=== PATIENT | male | born 1945 | race Caucasian/White ===

== ENCOUNTER → 2023-04-06 11:47 | Outpatient (REF) | payer OTHER, SELFPAY ==
[2023-04-06 12:41] LABS: % Basophils 1.2 % (0-2); % Eosinophils 5.1 % (0-6); % Immature Granulocytes 0.4 % (0-0.5); % Lymphocytes 30.9 % (20.5-51.1); % Monocytes 8.6 % (1.7-9.3); % Neutrophils 53.8 % (42.2-75.2); Absolute Basophils 0.1 10^3/uL (0-0.2); Absolute Eosinophils 0.3 10^3/uL (0-0.7); Absolute Lymphocytes 1.5 10^3/uL (1.2-3.4); Absolute Monocytes 0.4 10^3/uL (0.1-0.6); Absolute Neutrophils 2.6 10^3/uL (1.4-6.5); Hematocrit 44.4 % (39.0-52.0); Hemoglobin 15.3 g/dL (13.0-18.0); Mean Corp Hgb Conc. 34.5 g/dL (33.0-37.0); Mean Corpuscular Hgb 31.8 pg (27.0-31.0); Mean Corpuscular Volume 92.3 fL (80.0-94.0); Mean Platelet Volume 9.4 fL (7.4-10.4); Nucleated Red Blood Cells % 0 % (-); Platelet Count 178 10^3/uL (130-400); Red Blood Cell Count 4.81 10^6/uL (4.70-6.10); Red Cell Dist. Width 12.9 % (11.5-14.5); White Blood Cell Count 4.9 10^3/uL (4.8-10.8)
[2023-04-06 13:07] LABS: FSH 40.4 mIU/ml (1.55-9.74); Free T4 1.39 ng/dl (0.78-2.19)
[2023-04-06 13:11] LABS: Free T3 3.17 pg/ml (2.77-5.27)
[2023-04-06 13:21] LABS: TSH 2.25 uIU/ml (0.47-4.68)
[2023-04-06 13:26] LABS: PSA, Total - Screen 0.86 ng/ml (0.0-4.0)
[2023-04-09 01:02] LABS: Total T3 (Sendout) 71 ng/dL (80-200)
[2023-04-09 01:03] LABS: % Free Testosterone 1.4 % (1.6-2.9); Free Testosterone 56 pg/mL (47-244); Sex Hormone Binding Globulin 53 nmol/L (19-76); Total Testosterone 407 ng/dL (300-720)
== END ==
LOC: REG 11:47
PROVIDERS: ATTENDING PHYSICIAN Physician Assistant; FAMILY PHYSICIAN Internal Medicine Geriatric Medicine
DX: E29.1 Testicular hypofunction (principal); E03.9 Hypothyroidism, unspecified
CPT/HCPCS: 36415; 83001; 83002; 84270; 84402; 84403; 84439; 84443; 84480; 84481; 85025; G0103

== ENCOUNTER → 2023-05-11 11:34 | Outpatient (REF) | payer OTHER, SELFPAY | LOC: REG 11:34 | PROVIDERS: ATTENDING PHYSICIAN Nurse Practitioner Family; REFERRING PHYSICIAN Internal Medicine Critical Care Medicine | DX: R06.02 Shortness of breath (principal) | CPT/HCPCS: 71046 ==

== ENCOUNTER → 2023-10-04 11:53 | Outpatient (REF) | payer OTHER, SELFPAY ==
[2023-10-04 14:29] LABS: % Basophils 1.3 % (0-2); % Immature Granulocytes 0.4 % (0-0.5); % Monocytes 8.8 % (1.7-9.3); % Neutrophils 47.5 % (42.2-75.2); Absolute Basophils 0.1 10^3/uL (0-0.2); Absolute Eosinophils 1.5 10^3/uL (0-0.7); Absolute Lymphocytes 1.5 10^3/uL (1.2-3.4); Absolute Monocytes 0.6 10^3/uL (0.1-0.6); Absolute Neutrophils 3.3 10^3/uL (1.4-6.5); Hematocrit 43.4 % (39.0-52.0); Mean Corp Hgb Conc. 34.6 g/dL (33.0-37.0); Mean Corpuscular Volume 95.4 fL (80.0-94.0); Mean Platelet Volume 9.7 fL (7.4-10.4); Nucleated Red Blood Cells % 0 % (-); Platelet Count 190 10^3/uL (130-400); Red Blood Cell Count 4.55 10^6/uL (4.70-6.10); Red Cell Dist. Width 13.2 % (11.5-14.5)
[2023-10-04 14:59] LABS: ALT (SGPT) 45 U/L (0-50); AST (SGOT) 41 U/L (17-59); Albumin 4.4 g/dl (3.5-5.0); Alkaline Phosphatase 87 U/L (38-126); Blood Urea Nitrogen 30 mg/dl (9-20); Calcium 9.3 mg/dl (8.4-10.2); Carbon Dioxide 27 mmol/L (22-30); Chloride 101 mmol/L (98-107); Glucose 99 mg/dl (70-99); HDL Cholesterol 54 mg/dl; LDL Cholesterol, Calculated 113 mg/dl; Potassium 4.8 mmol/L (3.5-5.1); Sodium 136 mmol/L (135-145); Total Bilirubin 0.8 mg/dl (0.2-1.3); Total Cholesterol 181 mg/dl (50-199); Total Protein 6.6 g/dl (6.3-8.2); Triglyceride 74 mg/dl (10-149); Very Low Density Lipoprotein 14 mg/dl (0-30); eGFR > 60.00
[2023-10-04 15:08] LABS: IgA 135 mg/dl (70-400)
[2023-10-04 15:11] LABS: FSH 35.6 mIU/ml (1.55-9.74)
[2023-10-04 15:25] LABS: PSA, Total - Screen 0.96 ng/ml (0.0-4.0); TSH 3.02 uIU/ml (0.47-4.68)
[2023-10-06 15:21] LABS: tTG IgA Antibody 2.4 EU/ml (0-19)
[2023-10-06 17:41] LABS: % Free Testosterone 1.4 % (1.6-2.9); Free Testosterone 48 pg/mL (47-244); Sex Hormone Binding Globulin 49 nmol/L (19-76); Total Testosterone 333 ng/dL (300-720)
== END ==
LOC: REG 11:53
PROVIDERS: ATTENDING PHYSICIAN Physician Assistant; FAMILY PHYSICIAN Internal Medicine Geriatric Medicine
DX: E29.1 Testicular hypofunction (principal); E03.9 Hypothyroidism, unspecified; E78.2 Mixed hyperlipidemia; J01.41 Acute recurrent pansinusitis; J45.30 Mild persistent asthma, uncomplicated; G47.33 Obstructive sleep apnea (adult) (pediatric); J01.00 Acute maxillary sinusitis, unspecified; G47.34 Idiopathic sleep related nonobstructive alveolar hypoventilation; J45.909 Unspecified asthma, uncomplicated; J32.9 Chronic sinusitis, unspecified; Z13.89 Encounter for screening for other disorder; R09.81 Nasal congestion; R53.83 Other fatigue; J02.9 Acute pharyngitis, unspecified; G43.809 Other migraine, not intractable, without status migrainosus
CPT/HCPCS: 36415; 80053; 80061; 82784; 83001; 83002; 83516; 84270; 84402; 84403; 84439; 84443; 85025; 86231; G0103

== ENCOUNTER 2024-03-11 14:53 | Emergency (ER) | payer OTHER, SELFPAY ==
[2024-03-11 14:55] VITALS: BP 160/88
[2024-03-11 15:26] LABS: % Basophils 0.8 % (0-2); % Eosinophils 1.8 % (0-6); % Immature Granulocytes 0.4 % (0-0.5); % Lymphocytes 18.5 % (20.5-51.1); % Monocytes 8.9 % (1.7-9.3); % Neutrophils 69.6 % (42.2-75.2); Absolute Basophils 0.1 10^3/uL (0-0.2); Absolute Eosinophils 0.1 10^3/uL (0-0.7); Absolute Lymphocytes 1.3 10^3/uL (1.2-3.4); Absolute Monocytes 0.6 10^3/uL (0.1-0.6); Hematocrit 40.8 % (39.0-52.0); Hemoglobin 14.3 g/dL (13.0-18.0); Mean Corpuscular Hgb 32.4 pg (27.0-31.0); Mean Corpuscular Volume 92.5 fL (80.0-94.0); Mean Platelet Volume 9.4 fL (7.4-10.4); Nucleated Red Blood Cells % 0 % (-); Platelet Count 158 10^3/uL (130-400); Red Blood Cell Count 4.41 10^6/uL (4.70-6.10); Red Cell Dist. Width 12.8 % (11.5-14.5); White Blood Cell Count 7.2 10^3/uL (4.8-10.8)
[2024-03-11 15:41] LABS: ALT (SGPT) 46 U/L (0-50); AST (SGOT) 44 U/L (17-59); Albumin 4.4 g/dl (3.5-5.0); Alkaline Phosphatase 71 U/L (38-126); Blood Urea Nitrogen 29 mg/dl (9-20); Calcium 9.7 mg/dl (8.4-10.2); Carbon Dioxide 30 mmol/L (22-30); Chloride 96 mmol/L (98-107); Glucose 89 mg/dl (70-99); Potassium 5.5 mmol/L (3.5-5.1); Sodium 133 mmol/L (135-145); Total Protein 6.7 g/dl (6.3-8.2); eGFR > 60.00
[2024-03-11 15:52] LABS: Troponin I < 0.012 ng/ml
--- NOTE | 2024-03-11 18:28 | ED.GENMED ---
History of Present Illness
<Pascual Baca PA-C - Last Filed: 03/12/24 01:38>
General
Chief Complaint: Dizziness
Source: patient
Exam Limitations: none
Time Seen by Provider: 03/11/24 18:11
History of Present Illness
History of Present Illness:
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 He describes a spinning sensation. He was under stress. He went to a friend's this morning.
He noticed that his hot water heater broke and he was clearing out his basement and during this episode he had developed a headache with dizziness and hot sweats. There has been no cough or shortness of breath. He denies chest pain. He did note
some left jaw pain during this episode. Since waiting in the waiting room all of his symptoms have resolved. No unilateral numbness or weakness. No fevers. No vomiting. No other complaints at this time
Phy Exam
<Pascual Baca PA-C - Last Filed: 03/12/24 01:38>
Physical Exam
Physical Exam:
General: Well-appearing male no acute respiratory distress
HEENT: Normocephalic atraumatic
Heart: Bradycardic but regular
Lungs: Clear no wheeze
Extremities: No cyanosis
Neurologic exam: Alert and oriented no facial asymmetry no aphasia or dysarthria. No drift on exam no nystagmus
Skin is warm no rash
Course
<Pascual Baca PA-C - Last Filed: 03/12/24 01:38>
Orders/Labs/Results
Orders:
Orders
03/11/24 14:54
Electrocardiogram (*1) Urgent
Reason for Study: Vertigo / Dizzy
EKG- Treatment ONCE
03/11/24 15:20
CMP [Comprehensive Metabolic Panel] Urgent
Complete Blood Count/With Diff Urgent
TSH Reflex To Free T4 Urgent
Comment: ADD ON
Troponin I Urgent
03/11/24 18:27
Cardiac Monitoring- Treatment ONCE
pacemaker [Interrogate Pacemaker- Treatment] ONCE
03/11/24 18:28
Add On- LAB Urgent
Tests Added?: tsh reflex to free t4
03/11/24 19:23
COVID-19 Antigen Urgent
Source: Nasal Swab
Troponin I Urgent
Influenza A+B Rapid Molecular Urgent
SAGAR Source: Nasal Swab
Specimen Description:
03/11/24 20:38
CT Head W/o Iv Contrast Urgent
Comment:
Reason For Exam: dizziness
03/11/24 21:20
CT Limited Or Follow-up Study Urgent
Reason For Exam: dizziness, double vision
Abnormal Lab Results
03/11/24
15:20
RBC 4.41 L 10^6/uL
(4.70-6.10)
MCH 32.4 H pg
(27.0-31.0)
Lymphocytes % 18.5 L %
(20.5-51.1)
Sodium 133 L mmol/L
(135-145)
Potassium 5.5 H mmol/L
(3.5-5.1)
Chloride 96 L mmol/L
(98-107)
BUN 29 H mg/dl
(9-20)
03/11/24 15:20
03/11/24 15:20
Vital Signs
Initial and Last Documented VS:
Initial Vital Signs
Pulse Resp BP Pulse Ox
53 18 160/88 100
03/11/24 14:55 03/11/24 14:55 03/11/24 14:55 03/11/24 14:55
Last Documented Vital Signs
Temp Pulse Resp BP Pulse Ox
97.7 F 52 18 132/62 98
03/11/24 19:12 03/11/24 23:49 03/11/24 23:49 03/11/24 23:49 03/11/24 23:49
<Naye Durbin MD - Last Filed: 03/11/24 23:02>
Orders/Labs/Results
Orders:
Orders
03/11/24 14:54
Electrocardiogram (*1) Urgent
Reason for Study: Vertigo / Dizzy
EKG- Treatment ONCE
03/11/24 15:20
CMP [Comprehensive Metabolic Panel] Urgent
Complete Blood Count/With Diff Urgent
TSH Reflex To Free T4 Urgent
Comment: ADD ON
Troponin I Urgent
03/11/24 18:27
Cardiac Monitoring- Treatment ONCE
pacemaker [Interrogate Pacemaker- Treatment] ONCE
03/11/24 18:28
Add On- LAB Urgent
Tests Added?: tsh reflex to free t4
03/11/24 19:23
COVID-19 Antigen Urgent
Source: Nasal Swab
Troponin I Urgent
Influenza A+B Rapid Molecular Urgent
SAGAR Source: Nasal Swab
Specimen Description:
03/11/24 20:38
CT Head W/o Iv Contrast Urgent
Comment:
Reason For Exam: dizziness
03/11/24 21:20
CT Limited Or Follow-up Study Urgent
Reason For Exam: dizziness, double vision
Abnormal Lab Results
03/11/24
15:20
RBC 4.41 L 10^6/uL
(4.70-6.10)
MCH 32.4 H pg
(27.0-31.0)
Lymphocytes % 18.5 L %
(20.5-51.1)
Sodium 133 L mmol/L
(135-145)
Potassium 5.5 H mmol/L
(3.5-5.1)
Chloride 96 L mmol/L
(98-107)
BUN 29 H mg/dl
(9-20)
03/11/24 15:20
03/11/24 15:20
Vital Signs
Initial and Last Documented VS:
Initial Vital Signs
Pulse Resp BP Pulse Ox
53 18 160/88 100
03/11/24 14:55 03/11/24 14:55 03/11/24 14:55 03/11/24 14:55
Last Documented Vital Signs
Temp Pulse Resp BP Pulse Ox
97.7 F 52 18 132/62 98
03/11/24 19:12 03/11/24 23:49 03/11/24 23:49 03/11/24 23:49 03/11/24 23:49
<Pascual Baca PA-C - Last Filed: 03/12/24 01:38>
MDM/Problems Addressed
Differential Diagnosis Includes:
Patient with vague symptoms of not feeling well, headache dizziness fatigue. Does have cardiac history. Has a pacemaker. Will interrogate pacemaker. Initial troponin undetectable. Atrial paced rhythm with bradycardia this is his baseline.
Consider viral illness versus cardiac disease versus electrolyte abnormality versus vertigo
Labs reviewed. Will add CT of head P troponin COVID and flu test.
<Pascual Baca PA-C - Last Filed: 03/12/24 01:38>
*Critical Care Note
Total Time (30-74mins, 75-104mins- exclusive of procedures): Not Applicable
<Pascual Baca PA-C - Last Filed: 03/12/24 01:38>
Update Note
Update Note:
Patient reevaluated multiple times still asymptomatic. CT of the head was negative. Did order CTA of the head and neck secondary to his dizziness and his disconnected sensation in complaint of double vision a week ago. Unfortunately while
attempting at the CTA his IV line infiltrated due to the contrast. Patient unable to get the CTA tonight. Nonetheless he remains asymptomatic COVID and flu test were negative. Advise follow-up his doctors.
ED Attending Note
<Pascual Baca PA-C - Last Filed: 03/12/24 01:38>
-
Portions of this chart may have been created with voice recognition software.� Occasional wrong word or��sound alike� substitutions may have occurred due to the inherent limitations of voice recognition software.
<Naye Durbin MD - Last Filed: 03/11/24 23:02>
ED Attending Note
Patient seen and examined by attending physician: Yes
I performed the substantive portion of visit, reviewed & personally made and approve the management plan that is documented in note by myself or MARU.: Yes
ED Attending Note:
I was asked to evaluate patient after extravasation of IV contrast to his right upper extremity. Patient looks well and comfortable. He has a normal neurological exam. His right forearm is slightly swollen but soft and not particularly tender.
Patient has strong pulses in his right wrist. Patient be watched for 4 hours with ice pack and if the swelling does not get worse and he remains comfortable, we will send him home.
Discharge Plan
Departure
Patient Disposition: Home (Routine Discharge)
Date of Disposition: 03/12/24
Time of Disposition: 01:37
Patient with high blood pressure during this ER visit?: No
Discharge Problem:
Dizziness
Instructions: Dizziness
Prescriptions:
No Action
multivitamin [Daily Multiple] 1 EACH tablet
1 ea PO DAILY
fluticasone propionate [Flovent Diskus] 50 MCG blister with device
2 sprays IH BID
levothyroxine 100 MCG tablet
100 mcg PO DAILY
montelukast 10 MG tablet
10 mg PO HS
levalbuterol tartrate 1 PUFF HFA aerosol inhaler
2 puff inhalation PRN PRN (Reason: exercise)
fluticasone propion-salmeterol [Advair HFA] 1 PUFF HFA aerosol inhaler
2 puff inhalation R BID
Patient Comments:
115/21
cholecalciferol (vitamin D3) 2,000 UNIT tablet
2,000 unit PO DAILY
zinc [Zinc Chelate] 100 MG tablet
100 mg PO BID
milk thistle 175 MG tablet
175 mg PO TID
cyanocobalamin (vitamin B-12) 1,000 MCG tablet
3,000 mcg PO DAILY
fexofenadine [Magnolia] 180 MG tablet
180 mg PO HS
selenium 100 MCG tablet
100 mcg PO DAILY
coenzyme Q10 [Ultra CoQ10] 75 MG capsule
100 mg PO HS
fish oil-dha-epa 1 EACH capsule
2,500 mg PO BID
azelastine-fluticasone [Dymista] 23 GM spray,non-aerosol
2 spray NS HS
vitamin E succinate 100 UNIT tablet
180 mg PO DAILY
lutein-zeaxanthin [Ocuvite Lutein 25] 1 EACH capsule
1 ea PO DAILY
Cinnamon
2,000 mcg PO BID
Dynamic Biotics Pro/Pre Biotic
1 tab PO DAILY
Garlique
1 cap PO DAILY
Spirulina
100 mcg PO TID
Referrals:
David Jimenez MD [Active] -
Mike Trinidad MD [Family Provider] -
Activity Restrictions/Additional Instructions:
Please return here for any worsening symptoms. Follow-up with your doctor and household worker otherwise
Interventions
Interventions:
*Risk Screen - Suicide Last Done: 03/11/24 14:55
*General Assessment Last Done: 03/11/24 14:55
*ED COVID-19 Vaccine History Last Done: 03/11/24 14:55
ED- Neurological Assessment Last Done: 03/11/24 19:20
ED- Cardiac Assessment Last Done: 03/11/24 19:20
ED Swallowing Screen Last Done: 03/11/24 22:50
Discharge Date and Time
Print Language: CZECH
[2024-03-11 19:08] VITALS: BMI 25.5
[2024-03-11 19:11] VITALS: BP 155/77
[2024-03-11 19:12] VITALS: BP 155/77
[2024-03-11 19:45] LABS: COVID-19 Antigen Negative (Negative)
[2024-03-11 19:54] LABS: TSH Reflex To Free T4 2.27 uIU/ml (0.47-4.68)
--- NOTE | 2024-03-11 19:56 | EDRN ---
this pt has a [employer] Pacemaker. Per ER LUCA Baca verbal order, this INVESTOR RELATIONS ASSOCIATE attempted to interrogate this pts pacemaker. the [facility] Med[employer] Pacemaker Interrogation device was unable to connect to the wireless reader. This INVESTOR RELATIONS ASSOCIATE and
another INVESTOR RELATIONS ASSOCIATE were unsuccessful getting the pacemaker reader to connect to the daniel wirelessly. This INVESTOR RELATIONS ASSOCIATE called [employer] technical support for assistance and was told the local [employer] rep would call back to assist.
[2024-03-11 19:57] LABS: Troponin I 0.012 ng/ml
[2024-03-11 20:07] VITALS: BP 146/79
[2024-03-11 21:00] VITALS: BP 129/71
--- NOTE | 2024-03-11 22:45 | VATNOTE ---
Called by ER staffing specialist, IV in RAC infiltrated in CT, received 100-150cc of dye diluted with NSS. IV d'cd by ER staff. Pt. relates, +pain at site, minimal erythema, golf ball size swelling. Call to Pharmacy, instructed to elevate and endorsed. No
actual antidote listed. pill coater aware, will follow.
[2024-03-11 23:49] VITALS: BP 132/62
[2024-03-12 01:40] VITALS: BP 140/75
== END 2024-03-12 02:09 | disposition home or self-care (01) ==
LOC: EMR 14:53
PROVIDERS: Emergency Medicine; Physician Assistant; EMERGENCY PHYSICIAN Emergency Medicine; FAMILY PHYSICIAN Internal Medicine Geriatric Medicine
DX: R42 Dizziness and giddiness (principal); R51.9 Headache, unspecified; R68.84 Jaw pain; T80.89XA Other complications following infusion, transfusion and therapeutic injection, initial encounter; Y84.8 Other medical procedures as the cause of abnormal reaction of the patient, or of later complication, without mention of misadventure at the time of the procedure; Z11.52 Encounter for screening for COVID-19; Z73.3 Stress, not elsewhere classified; Z95.0 Presence of cardiac pacemaker; Z79.899 Other long term (current) drug therapy; Z88.1 Allergy status to other antibiotic agents; Z91.048 Other nonmedicinal substance allergy status
CPT/HCPCS: 99285; 93288; 70450; 76380; 80053; 84443; 84484; 85025; 87502; 87811; 93005

== ENCOUNTER → 2024-03-29 06:49 | Outpatient (REF) | payer OTHER, SELFPAY ==
[2024-03-29] MEDS: LEXISCAN 0.4 MG IV (09:02)
== END ==
LOC: RCS 06:49
PROVIDERS: ATTENDING PHYSICIAN Internal Medicine Geriatric Medicine
DX: Z95.0 Presence of cardiac pacemaker (principal); I49.5 Sick sinus syndrome
CPT/HCPCS: 78452; 93017; A9500; J2785

== ENCOUNTER → 2024-04-07 10:31 | Outpatient (REF) | payer OTHER, SELFPAY ==
[2024-04-07 11:12] LABS: % Basophils 1.2 % (0-2); % Eosinophils 2.6 % (0-6); % Immature Granulocytes 0.5 % (0-0.5); % Lymphocytes 33.7 % (20.5-51.1); Absolute Basophils 0.1 10^3/uL (0-0.2); Absolute Eosinophils 0.1 10^3/uL (0-0.7); Absolute Lymphocytes 1.4 10^3/uL (1.2-3.4); Absolute Monocytes 0.5 10^3/uL (0.1-0.6); Absolute Neutrophils 2.2 10^3/uL (1.4-6.5); Hematocrit 43.1 % (39.0-52.0); Hemoglobin 14.6 g/dL (13.0-18.0); Mean Corp Hgb Conc. 33.9 g/dL (33.0-37.0); Mean Corpuscular Hgb 31.7 pg (27.0-31.0); Mean Corpuscular Volume 93.7 fL (80.0-94.0); Mean Platelet Volume 9.7 fL (7.4-10.4); Nucleated Red Blood Cells % 0 % (-); Platelet Count 168 10^3/uL (130-400); White Blood Cell Count 4.3 10^3/uL (4.8-10.8)
[2024-04-07 11:53] LABS: FSH 42.2 mIU/ml (1.55-9.74); Free T4 1.27 ng/dl (0.78-2.19)
[2024-04-07 12:07] LABS: PSA, Total - Screen 0.77 ng/ml (0.0-4.0); TSH 3.33 uIU/ml (0.47-4.68)
[2024-04-09 22:41] LABS: % Free Testosterone 1.3 % (1.6-2.9); Free Testosterone 61 pg/mL (47-244); Sex Hormone Binding Globulin 56 nmol/L (19-76); Total Testosterone 451 ng/dL (300-720)
== END ==
LOC: REG 10:31
PROVIDERS: ATTENDING PHYSICIAN Physician Assistant
DX: E03.9 Hypothyroidism, unspecified (principal); E29.1 Testicular hypofunction
CPT/HCPCS: 36415; 83001; 83002; 84270; 84402; 84403; 84439; 84443; 85025; G0103

== ENCOUNTER 2024-07-18 06:18 | Day surgery (SDC) | payer MEDICARE, OTHER, SELFPAY | END 2024-07-18 14:50 | disposition home or self-care (01) | LOC: GI 06:18 | PROVIDERS: ATTENDING PHYSICIAN Internal Medicine Gastroenterology | DX: Z12.11 Encounter for screening for malignant neoplasm of colon (principal); K64.8 Other hemorrhoids; K57.30 Diverticulosis of large intestine without perforation or abscess without bleeding; K63.5 Polyp of colon; Z80.0 Family history of malignant neoplasm of digestive organs | CPT/HCPCS: 45380; 88305 ==

== ENCOUNTER → 2024-09-20 14:18 | Outpatient (REF) | payer MEDICARE, OTHER, SELFPAY | LOC: DHSLP 14:18 | PROVIDERS: ATTENDING PHYSICIAN Internal Medicine Critical Care Medicine; FAMILY PHYSICIAN Internal Medicine Geriatric Medicine | DX: G47.33 Obstructive sleep apnea (adult) (pediatric) (principal); G47.00 Insomnia, unspecified; G47.61 Periodic limb movement disorder | CPT/HCPCS: 95811 ==

== ENCOUNTER → 2024-09-21 07:21 | Outpatient (REF) | payer MEDICARE, OTHER, SELFPAY ==
[2024-09-21 08:13] LABS: Hematocrit 45.3 % (39.0-52.0); Hemoglobin 15.4 g/dL (13.0-18.0); Mean Corp Hgb Conc. 34.0 g/dL (33.0-37.0); Mean Corpuscular Volume 92.8 fL (80.0-94.0); Nucleated Red Blood Cells % 0 % (-); Platelet Count 156 10^3/uL (130-400); Red Cell Dist. Width 13.0 % (11.5-14.5)
[2024-09-21 09:05] LABS: FSH 37.0 mIU/ml (1.55-9.74)
[2024-09-21 09:20] LABS: PSA, Total - Screen 1.03 ng/ml (0.0-4.0)
== END ==
LOC: REG 07:21
PROVIDERS: ATTENDING PHYSICIAN Physician Assistant; FAMILY PHYSICIAN Internal Medicine Geriatric Medicine
DX: E29.1 Testicular hypofunction (principal); Z12.5 Encounter for screening for malignant neoplasm of prostate
CPT/HCPCS: 36415; 83001; 83002; 84270; 84402; 84403; 85025; G0103

== ENCOUNTER → 2024-10-19 10:29 | Outpatient (REF) | payer MEDICARE, OTHER, SELFPAY ==
[2024-10-19 11:36] LABS: Hematocrit 43.6 % (39.0-52.0); Hemoglobin 15.0 g/dL (13.0-18.0); Mean Corp Hgb Conc. 34.4 g/dL (33.0-37.0); Mean Corpuscular Volume 92.4 fL (80.0-94.0); Nucleated Red Blood Cells % 0 % (-); Platelet Count 172 10^3/uL (130-400); Red Cell Dist. Width 13.0 % (11.5-14.5)
[2024-10-19 12:29] LABS: FSH 34.5 mIU/ml (1.55-9.74)
[2024-10-19 12:40] LABS: PSA, Total - Diagnostic 0.84 ng/ml (0.0-4.0); TSH 3.54 uIU/ml (0.47-4.68)
== END ==
LOC: REG 10:29
PROVIDERS: ATTENDING PHYSICIAN Physician Assistant; FAMILY PHYSICIAN Internal Medicine Geriatric Medicine
DX: E29.1 Testicular hypofunction (principal); E03.9 Hypothyroidism, unspecified; N40.0 Benign prostatic hyperplasia without lower urinary tract symptoms
CPT/HCPCS: 36415; 83001; 83002; 84153; 84270; 84402; 84403; 84439; 84443; 85025

== ENCOUNTER → 2024-12-06 14:38 | Outpatient (REF) | payer MEDICARE, OTHER, SELFPAY | LOC: HWRAD 14:38 | PROVIDERS: ATTENDING PHYSICIAN Internal Medicine Geriatric Medicine | DX: E78.2 Mixed hyperlipidemia (principal) | CPT/HCPCS: 75571 ==